=== PATIENT | male | born 1990 | race Caucasian/White ===

== ENCOUNTER 2017-02-26 18:24 | Emergency (ER) | payer OTHER ==
[~2017-02-26] VITALS: Ht 180.3 cm; Wt 94.8 kg
[~2017-02-26 18:24] MED LIST: AMOXICILLIN500 MG PO; BACTRIM,SEPT1 TABLET PO; CATAPRES0.1 MG PO; NOHOMEMEDS; TRAZODONE HCL50 MG PO; TYLENOL REGULA325 MG PO; ZYRTEC10 M3 PO
[2017-02-26 19:13] LABS: HEMATOCRIT 41.7 % (38.0-50.0); MCH 29.7 PG (29.0-34.0); MCHC 33.6 G/DL (30.0-36.0); MCV 88.5 FL (86-99); MEAN PLAT.VOLUME 11.8 uM^3 (9.0-12.4); PLATELET COUNT 205 K/uL (156-360); RBC DIS.WIDTH-CV 12.4 % (11.8-14.6); RED BLOOD COUNT 4.71 M/uL (4.00-5.50); WHITE BLOOD COUNT 11.1 K/uL (4.1-10.2)
[2017-02-26 19:26] LABS: CHLORIDE 102 mEq/L (99-109); POTASSIUM 3.9 mEq/L (3.7-5.4); SODIUM 138 mEq/L (136-147)
[2017-02-26 19:27] LABS: GLUCOSE 100 mg/dL (70-99)
[2017-02-26 19:29] LABS: ANION GAP 11 MEQ/L (2-14)
[2017-02-26 19:31] LABS: GFR ESTIMATE (CALCULATED) > 59 mL/min/
[2017-02-26 19:32] LABS: UREA NITROGEN (BUN) 9 mg/dL (9-23)
[2017-02-26 19:38] LABS: TROP-I INTERPRETATION NEGATIVE; TROPONIN-I < 0.01 ng/mL (0.0-0.30)
[2017-02-26] MEDS ORDERED: LISINOPRIL10 MG PO (20:36)
[2017-02-26] MEDS ORDERED: LOPRESSOR25 MG PO (20:36)
[2017-02-26] MEDS ORDERED: ASPIR 8181 M1 PO (20:37)
[2017-02-26] MEDS ORDERED: ATORVASTATIN CA40 MG PO (20:37)
[2017-02-26] MEDS ORDERED: PROVENTIL HFA6.7 GM IH (21:02)
[2017-02-26] MEDS ORDERED: PREDNISONE20 MG PO (21:02)
[2017-02-26 21:42] VITALS: BP 105/80
== END 2017-02-26 21:43 | disposition home or self-care (01) ==
LOC: EME 18:24
DX: J45.909 Unspecified asthma, uncomplicated (principal); R07.9 Chest pain, unspecified; F17.290 Nicotine dependence, other tobacco product, uncomplicated; Z86.73 Personal history of transient ischemic attack (TIA), and cerebral infarction without residual deficits; M41.9 Scoliosis, unspecified
CPT/HCPCS: 71020; 80048; 84484; 85027; 93005; 99281; 99285